=== PATIENT | male | born 1985 | race Caucasian/White ===

== ENCOUNTER → 2017-01-04 | Outpatient (CLI) | payer OTHER ==
--- NOTE | ~2017-01-04 | CR169 ---
[facility] A Service of [facility] & [facility] RADIOLOGY TEXT RESULTS PATIENT: DAYNE PFEIFFER LOCATION: [facility] : 85 UNIT #: [id number] AGE: [address]: DHIRAJ Bosch Doctor SEX: M ORDER DR: [id number] [facility] [address] [place], [place] [address] [id number] O MR#: [id number] Acc #: [id number] NAME: DAYNE PFEIFFER : 1985 SEX: M STUDY DATE/TIME: 01/04/2017 18:27 UNIT: [facility] ROOM: STUDY DESCRIPTION: CR Knee 2 Views Lt Attending Physician: Er Doctor Danitza Ordering Physician: Physician Non-Staff Primary Care Physician: Primary Care Physician No MEDICAL IMAGING REPORT This report is preliminary unless electronic signature is present EXAM Left knee 2 views, 01/04/2017 HISTORY Left knee pain for 4 years. No known injury. FINDINGS AP and lateral projection of the knee shows smooth articular anatomy without indication of fracture or dislocation at the major weight-bearing surface of the knee. There is no indication of radiopaque foreign body about the knee surface or joint effusion. IMPRESSION Normal knee. Dictated by... Kadeem Martinez M.D. THIS IS AN ELECTRONICALLY VERIFIED REPORT Kadeem Martinez M.D. at 01/05/2017 2:17 PM KRT/jennifer TD: 01/05/2017 03:08 JOB #: [id number] MEDICAL IMAGING REPORT COPY
--- NOTE | ~2017-01-04 | CR170 ---
[facility] A Service of [facility] & [facility] RADIOLOGY TEXT RESULTS PATIENT: DAYNE PFEIFFER LOCATION: [facility] : 85 UNIT #: [id number] AGE: [address]: DHIRAJ Bosch Doctor SEX: M ORDER DR: [id number] [id number] [place], [place] [address] [id number] O MR#: [id number] Acc #: [id number] NAME: DAYNE PFEIFFER : 1985 SEX: M STUDY DATE/TIME: 01/04/2017 18:26 UNIT: [facility] ROOM: STUDY DESCRIPTION: CR Knee 2 Views Rt Attending Physician: Er Doctor Danitza Ordering Physician: Physician Non-Staff Primary Care Physician: Primary Care Physician No MEDICAL IMAGING REPORT This report is preliminary unless electronic signature is present EXAM Right knee 2 views, 01/04/2017 HISTORY Right knee pain for 4 years with no known injury. FINDINGS AP and lateral projection of the knee shows smooth articular anatomy without indication of fracture or dislocation at the major weight-bearing surface of the knee. There is no indication of radiopaque foreign body about the knee surface or joint effusion. IMPRESSION Normal knee. Dictated by... Kadeem Martinez M.D. THIS IS AN ELECTRONICALLY VERIFIED REPORT Kadeem Martinez M.D. at 01/05/2017 2:17 PM MISBAH/jennifer TD: 01/05/2017 03:42 JOB #: [id number] MEDICAL IMAGING REPORT COPY
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
== END | disposition home or self-care (01) ==
LOC: CRAD 18:06
DX: M25.561 Pain in right knee (principal); M25.562 Pain in left knee; M25.571 Pain in right ankle and joints of right foot; F17.200 Nicotine dependence, unspecified, uncomplicated
CPT/HCPCS: 73560; 73610

== ENCOUNTER 2017-06-22 16:29 | Emergency (ER) | payer OTHER ==
[~2017-06-22] VITALS: Ht 182.9 cm; Wt 95.2 kg
--- NOTE | ~2017-06-22 | CR109 ---
[facility] A Service of [facility] & [facility] RADIOLOGY TEXT RESULTS PATIENT: DAYNE PFEIFFER LOCATION: [facility] : 85 UNIT #: [id number] AGE: [address]: Dinah Shelton APRN SEX: M ORDER DR: [id number] [facility] [address] [facility] [place], [place] [address] [id number] E MR#: [id number] Acc #: [id number] NAME: DAYNE PFEIFFER : 1985 SEX: M STUDY DATE/TIME: 06/22/2017 20:29 UNIT: [facility] ROOM: STUDY DESCRIPTION: CR Finger 2 View 2nd Rt Attending Physician: Dinah Shelton A.P.R.N. Ordering Physician: Dinah Shelton A.P.R.N. Primary Care Physician: Primary Care Physician No MEDICAL IMAGING REPORT This report is preliminary unless electronic signature is present EXAM Right second finger 3 views 06/22/2017 HISTORY Laceration right second finger today with distal phalanx numbness, cut finger on a metal screen door today with swelling. FINDINGS Three views of the right second finger demonstrate oblique nondisplaced fracture through the volar base of the second middle phalanx. No other fracture or dislocation is seen. The bones are normally mineralized. There is soft tissue swelling about the second phalanx. IMPRESSION Nondisplaced fracture through the volar base of the second middle phalanx with overlying soft tissue edema. Dictated by... Kadeem Martinez M.D. THIS IS AN ELECTRONICALLY VERIFIED REPORT Kadeem Martinez M.D. at 06/23/2017 4:03 PM MISBAH/josie TD: 06/23/2017 12:27 JOB #: [id number] MEDICAL IMAGING REPORT Page 1 of 1 COPY
== END 2017-06-22 22:35 | disposition home or self-care (01) ==
LOC: CFTX 16:29 → CED 16:29 → CFTX 20:23
DX: S62.650B Nondisplaced fracture of middle phalanx of right index finger, initial encounter for open fracture (principal); F17.210 Nicotine dependence, cigarettes, uncomplicated; W23.0XXA Caught, crushed, jammed, or pinched between moving objects, initial encounter; Y92.009 Unspecified place in unspecified non-institutional (private) residence as the place of occurrence of the external cause; Z23 Encounter for immunization
CPT/HCPCS: 73140; 90471; 90715; 99284